=== PATIENT | male | born 1945 | race African-American/Black ===

== ENCOUNTER 2017-08-27 10:32 | Emergency (ER) | payer BC, MEDICARE | END 2017-08-27 13:11 | disposition home or self-care (01) | LOC: ERS 10:32 | DX: E11.649 Type 2 diabetes mellitus with hypoglycemia without coma (principal); M10.9 Gout, unspecified; I10 Essential (primary) hypertension; E78.5 Hyperlipidemia, unspecified; F17.210 Nicotine dependence, cigarettes, uncomplicated | CPT/HCPCS: 36416; 99284 ==

== ENCOUNTER 2018-04-11 09:07 | Emergency (ER) | payer BC, MEDICARE ==
--- NOTE | 2018-04-11 11:42 | RAD ---
ABDOMEN 1 VIEW: Date: 04/11/18 HISTORY: Abdominal pain. Constipation. FINDINGS: Large amount of stool throughout the colon and rectum. Small bowel gas pattern is nonspecific. Hemost asis clips over the right lower quadrant. Prominent calcification over the arterial structures. Dome of the liver and spleen are excluded from the image. IMPRESSION: 1. Constipation. 2. Atherosclerosis. POS: JANI
== END 2018-04-11 11:08 | disposition home or self-care (01) ==
LOC: ERS 09:07
DX: K59.00 Constipation, unspecified (principal); M10.9 Gout, unspecified; E11.9 Type 2 diabetes mellitus without complications; E78.5 Hyperlipidemia, unspecified; I10 Essential (primary) hypertension; Z87.891 Personal history of nicotine dependence; Z79.899 Other long term (current) drug therapy; Z79.82 Long term (current) use of aspirin
CPT/HCPCS: 74018

== ENCOUNTER 2019-04-09 07:57 | Emergency (ER) | payer MEDICARE, BC | END 2019-04-09 09:45 | disposition home or self-care (01) | LOC: ERS 07:57 | DX: I10 Essential (primary) hypertension (principal); M10.9 Gout, unspecified; E78.5 Hyperlipidemia, unspecified; F17.210 Nicotine dependence, cigarettes, uncomplicated; E11.9 Type 2 diabetes mellitus without complications; Z79.82 Long term (current) use of aspirin; Z79.899 Other long term (current) drug therapy; Z79.4 Long term (current) use of insulin; Z79.891 Long term (current) use of opiate analgesic | CPT/HCPCS: 99283 ==

== ENCOUNTER 2021-04-23 05:17 | Inpatient (IN) | payer MEDICARE, BC ==
[2021-04-23] MEDS ORDERED: Magnesium 2 GM/50 ML BAG (IN WATER) ONE (05:25)
[2021-04-23] MEDS ORDERED: Dexamethasone 10 MG/ML VIAL ONE (05:32)
[2021-04-23] MEDS ORDERED: Nitroglycerin 2% Ointment 1 INCH/1 GM Packet ONE (05:42)
[2021-04-23] MEDS ORDERED: hydrALAZINE 20 MG/ML VIAL ONE ×2 (05:42)
[2021-04-23 05:45] LABS: #Basophils 0.1 thou/uL (0.0-0.2); #Eosinphils 0.4 thou/uL (0.0-0.7); #Lymphocytes 1.9 thou/uL (1.20-3.40); #Monocytes 0.5 thou/uL (0.11-0.59); #Neutrophils 5.8 thou/uL (1.40-6.50); %Basophils 0.6 % (0.0-1.0); %Monocytes 5.7 % (0.0-10.0); %Neutrophils 66.7 % (42.0-75.0); Hemoglobin 7.9 g/dL (14.0-18.0); Mean Corpuscular HGB CONC 31.9 g/dL (32.0-36.0); Mean Corpuscular Hemoglobin 29.8 pg (27.0-31.0); Mean Corpuscular Volume 93.3 fL (78.0-98.0); Mean Platelet Volume 6.7 fL (7.4-10.4); Platelet Count 118 thou/uL (130-400); RBC Distribution Width 18.8 % (11.5-14.5); Red Blood Cell (RBC) Count 2.64 mill/uL (4.70-6.10); White Blood Cell (WBC) Count 8.7 thou/uL (4.8-10.8)
[2021-04-23] MEDS ORDERED: cloNIDine 0.1 MG TAB ONE (06:31)
[2021-04-23] MEDS ORDERED: Cefepime 2 GM VIAL ONE ×2 (06:31→06:32)
[2021-04-23] MEDS ORDERED: Vancomycin 1 GM/200 ML BAG ONE (06:31)
[2021-04-23 07:23] LABS: SARS-CoV-2 NAA Rapid Test Not Detected (NotDetected)
[2021-04-23 07:54] LABS: Albumin 3.4 g/dL (3.4-4.8)
[2021-04-23 07:55] LABS: Chloride 102 mmol/L (98-107); Potassium 4.5 mmol/L (3.5-5.1); Sodium 139 mmol/L (136-145)
[2021-04-23 07:56] LABS: Calcium 9.1 mg/dL (7.8-10.44)
[2021-04-23 07:57] LABS: Globulin 2.9 g/dL (2.4-3.5); Glucose 266 mg/dL (83-110); Protein, Total 6.3 g/dL (5.8-8.1)
[2021-04-23 07:58] LABS: Anion Gap 16 mmol/L (10-20); Bilirubin, Total 0.5 mg/dL (0.2-1.2); Carbon Dioxide 26 mmol/L (23-31)
[2021-04-23 08:00] LABS: Alkaline Phosphatase 101 U/L (40-110); Calc. Creatinine Clearance 0 mL/min (70-130)
[2021-04-23 08:01] LABS: BUN (Urea Nitrogen) 55 mg/dL (8.4-25.7)
[2021-04-23 08:02] LABS: AST (SGOT) 19 U/L (5-34)
[2021-04-23 08:03] LABS: ALT (SGPT) 16 U/L (8-55); CK (CPK) 94 U/L (30-200); Lipase 62 U/L (8-78)
[2021-04-23] MEDS ORDERED: Polyethylene Glycol 3350 17 GM Packet PO PRN (10:26)
[2021-04-23] MEDS ORDERED: Dextrose 5% in Water 1,000 ML IV PRN (10:45)
[2021-04-23] MEDS ORDERED: Dextrose 50% Abboject 50 ML SYRINGE SLOW IVP PRN (10:45)
[2021-04-23 11:07] LABS: Lactic Acid 0.9 mmol/L (0.5-2.2)
[2021-04-23] MEDS ORDERED: Iopamidol-370 76% 500 ML 1 ML ONE (11:34)
[2021-04-23 11:54] LABS: HBSAg Index 0.26 S/CO (0-0.99); Hep B Surf Ag Non-Reactive S/CO (NonReactive)
[2021-04-23] MEDS ORDERED: Azithromycin 500 MG VIAL ONE (14:51)
[2021-04-23] MEDS ORDERED: methylPREDNISolone Sod Succ 40 MG VIAL ONE (14:53)
[2021-04-23] MEDS ORDERED: cefTRIAXone\\ROCEPHIN 1 GM VIAL ONE (14:53)
[2021-04-23] MEDS ORDERED: Sodium Bicarbonate Tab 325 MG TAB PO SCH (15:00)
[2021-04-23] MEDS: cefTRIAXone\\ROCEPHIN 1 GM in Sodium Chloride 0.9% 100 ML IVPB SCH (19:13)
[2021-04-23] MEDS: Azithromycin 500 MG in Sodium Chloride 0.9% 250 ML 250 ML IVPB SCH (19:13)
[2021-04-23] MEDS: methylPREDNISolone Sod Succ 40 MG VIAL IVP SCH ×2 (19:13→22:25)
[2021-04-23] MEDS: Nicotine 21 MG PATCH TD SCH (19:13)
[2021-04-23] MEDS: Heparin 5,000 UNITS/ML VIAL SC SCH (19:14)
[2021-04-23] MEDS: cloNIDine 0.3 MG TAB PO SCH (19:16)
[2021-04-23] MEDS: Sevelamer Carbonate 800 MG TAB PO SCH ×2 (19:16)
[2021-04-23] MEDS: Carvedilol 25 MG TAB PO SCH (19:17)
[2021-04-23] MEDS ORDERED: Acetaminophen 325 MG TAB ONE (22:32)
[2021-04-23] MEDS ORDERED: hydrALAZINE 25 MG TAB ONE (22:32)
[2021-04-23] MEDS: NIFEdipine XL 60 MG TAB PO SCH (22:36)
[2021-04-23] MEDS: hydrALAZINE 25 MG TAB PO SCH (22:37)
[2021-04-23] MEDS: Acetaminophen 325 MG TAB PO PRN (22:39)
[2021-04-24] MEDS: Lantus 1000 UNITS/10 ML VIAL SC SCH ×3 (00:11→21:10)
[2021-04-24] MEDS: Atorvastatin Calcium 40 MG TAB PO SCH ×2 (00:11→21:09)
[2021-04-24] MEDS: Latanoprost 0.005% Ophth Soln 2.5 ml Bottle EA EYE SCH ×2 (00:12→21:47)
[2021-04-24] MEDS: Timolol 0.5% Ophth Soln 5 ml Bottle EA EYE SCH ×3 (00:13→21:11)
[2021-04-24] MEDS ORDERED: Heparin 10,000 UNITS/ 10 ML VIAL ONE (02:41)
[2021-04-24] MEDS ORDERED: methylPREDNISolone Sod Succ 40 MG VIAL ONE (02:41)
[2021-04-24] MEDS ORDERED: cloNIDine 0.1 MG TAB ONE (02:41)
[2021-04-24] MEDS: cloNIDine 0.3 MG TAB PO SCH ×4 (03:10→21:09)
[2021-04-24] MEDS: methylPREDNISolone Sod Succ 40 MG VIAL IVP SCH ×3 (03:11→14:26)
[2021-04-24] MEDS: Heparin 5,000 UNITS/ML VIAL SC SCH ×2 (03:11→16:34)
[2021-04-24] MEDS ORDERED: Aspirin 325 mg Enteric Coated Tablet PO SCH (09:00)
[2021-04-24 09:08] LABS: #Lymphocytes 0.5 thou/uL (1.20-3.40); #Monocytes 0.2 thou/uL (0.11-0.59); %Eosinophils 0.1 % (0.0-10.0); %Lymphocytes 7.1 % (21.0-51.0); %Monocytes 3.2 % (0.0-10.0); %Neutrophils 89.6 % (42.0-75.0); Hemoglobin 6.6 g/dL (14.0-18.0); Mean Corpuscular Hemoglobin 29.3 pg (27.0-31.0); Mean Corpuscular Volume 91.7 fL (78.0-98.0); Mean Platelet Volume 8.7 fL (7.4-10.4); Platelet Count 95 thou/uL (130-400); RBC Distribution Width 20.8 % (11.5-14.5); Red Blood Cell (RBC) Count 2.24 mill/uL (4.70-6.10); White Blood Cell (WBC) Count 6.7 thou/uL (4.8-10.8)
[2021-04-24 09:22] LABS: Anion Gap 15 mmol/L (10-20); BUN (Urea Nitrogen) 45 mg/dL (8.4-25.7); Calc. Creatinine Clearance 0 mL/min (70-130); Calcium 8.7 mg/dL (7.8-10.44); Carbon Dioxide 28 mmol/L (23-31); Chloride 100 mmol/L (98-107); Glucose 279 mg/dL (83-110); Potassium 4.4 mmol/L (3.5-5.1); Sodium 139 mmol/L (136-145)
[2021-04-24] MEDS ORDERED: Ondansetron PF 4 MG/2 ML Vial IVP PRN (10:22)
[2021-04-24] MEDS ORDERED: Ondansetron ODT 4 MG TAB PO PRN (10:22)
[2021-04-24] MEDS: Sevelamer Carbonate 800 MG TAB PO SCH ×3 (10:44→16:04)
[2021-04-24] MEDS: hydrALAZINE 25 MG TAB PO SCH ×2 (10:44→21:10)
[2021-04-24] MEDS: Carvedilol 25 MG TAB PO SCH ×2 (10:44→16:04)
[2021-04-24] MEDS: NIFEdipine XL 60 MG TAB PO SCH ×2 (10:45→21:09)
[2021-04-24] MEDS: HumaLOG 300 UNITS/3 ML VIAL SC PRN (11:17)
[2021-04-24 12:12] VITALS: BMI 20.5
[2021-04-24] MEDS: Acetaminophen 325 MG TAB PO PRN (13:05)
[2021-04-24] MEDS: Fluticasone Propionate Nasal Spray 16 gm Bottle NASAL SCH (14:57)
[2021-04-24 15:31] LABS: Hemoglobin 8.5 g/dL (14.0-18.0); Mean Corpuscular HGB CONC 32.4 g/dL (32.0-36.0); Mean Corpuscular Hemoglobin 29.9 pg (27.0-31.0); Mean Corpuscular Volume 92.2 fL (78.0-98.0); Mean Platelet Volume 7.5 fL (7.4-10.4); Platelet Count 97 thou/uL (130-400); Red Blood Cell (RBC) Count 2.83 mill/uL (4.70-6.10); White Blood Cell (WBC) Count 9.3 thou/uL (4.8-10.8)
[2021-04-24] MEDS: Allopurinol 100 MG TAB PO SCH (16:02)
[2021-04-24] MEDS: Furosemide 20 MG TAB PO SCH (16:03)
[2021-04-24] MEDS: Amlodipine 10 MG TAB PO SCH (16:04)
[2021-04-24] MEDS: cefTRIAXone\\ROCEPHIN 1 GM in Sodium Chloride 0.9% 100 ML IVPB SCH (16:05)
[2021-04-24] MEDS: Nicotine 21 MG PATCH TD SCH (16:05)
[2021-04-24 16:06] LABS: CKMB 0.9 ng/mL (0-6.6)
[2021-04-24] MEDS: Azithromycin 500 MG in Sodium Chloride 0.9% 250 ML 250 ML IVPB SCH (17:05)
[2021-04-24 21:02] LABS: CKMB 0.7 ng/mL (0-6.6)
[2021-04-25 10:01] LABS: INR-International Normal Ratio 1.1; Prothrombin Time 14.3 sec (12.0-14.7)
[2021-04-25 10:02] LABS: PTT 27.3 sec (22.9-36.1)
[2021-04-25] MEDS: Allopurinol 100 MG TAB PO SCH (10:06)
[2021-04-25] MEDS: hydrALAZINE 25 MG TAB PO SCH ×2 (10:06→21:40)
[2021-04-25] MEDS: cloNIDine 0.3 MG TAB PO SCH ×3 (10:06→21:42)
[2021-04-25] MEDS: Lidocaine 5% Patch TD SCH (10:06)
[2021-04-25] MEDS: Carvedilol 25 MG TAB PO SCH ×2 (10:06→16:33)
[2021-04-25] MEDS: Furosemide 20 MG TAB PO SCH (10:06)
[2021-04-25] MEDS: NIFEdipine XL 60 MG TAB PO SCH ×2 (10:06→21:41)
[2021-04-25] MEDS: Sevelamer Carbonate 800 MG TAB PO SCH ×3 (10:07→16:33)
[2021-04-25] MEDS: Amlodipine 10 MG TAB PO SCH (10:07)
[2021-04-25] MEDS: Fluticasone Propionate Nasal Spray 16 gm Bottle NASAL SCH (10:08)
[2021-04-25] MEDS: Lantus 1000 UNITS/10 ML VIAL SC SCH ×2 (11:03→21:41)
[2021-04-25] MEDS: cefTRIAXone\\ROCEPHIN 1 GM in Sodium Chloride 0.9% 100 ML IVPB SCH (11:55)
[2021-04-25] MEDS: Nicotine 21 MG PATCH TD SCH (11:56)
[2021-04-25] MEDS: Timolol 0.5% Ophth Soln 5 ml Bottle EA EYE SCH ×2 (11:56→21:42)
[2021-04-25] MEDS ORDERED: Fentanyl 100 MCG/2 ML VIAL ONE (12:54)
[2021-04-25] MEDS ORDERED: Sodium Bicarbonate 2.5 MEQ/5 ML VIAL ONE (12:54)
[2021-04-25] MEDS ORDERED: Lidocaine 1% PF 5 ML VIAL ONE (12:54)
[2021-04-25] MEDS ORDERED: Midazolam HCl 2 mg/2 ml Vial ONE (12:54)
[2021-04-25] MEDS: Azithromycin 500 MG in Sodium Chloride 0.9% 250 ML 250 ML IVPB SCH (15:08)
[2021-04-25] MEDS: HumaLOG 300 UNITS/3 ML VIAL SC PRN (17:24)
[2021-04-25] MEDS: Atorvastatin Calcium 40 MG TAB PO SCH (21:40)
[2021-04-25] MEDS: Latanoprost 0.005% Ophth Soln 2.5 ml Bottle EA EYE SCH (21:41)
[2021-04-25] MEDS: Transdermal Patch Removal TOP SCH (22:24)
[2021-04-26 05:51] LABS: #Eosinphils 0.1 thou/uL (0.0-0.7); #Lymphocytes 1.1 thou/uL (1.20-3.40); #Monocytes 0.4 thou/uL (0.11-0.59); #Neutrophils 5.3 thou/uL (1.40-6.50); %Basophils 0.2 % (0.0-1.0); %Eosinophils 2.1 % (0.0-10.0); %Lymphocytes 15.4 % (21.0-51.0); %Monocytes 6.3 % (0.0-10.0); Anion Gap 16 mmol/L (10-20); BUN (Urea Nitrogen) 57 mg/dL (8.4-25.7); Calc. Creatinine Clearance 9 mL/min (70-130); Calcium 8.4 mg/dL (7.8-10.44); Carbon Dioxide 27 mmol/L (23-31); Chloride 98 mmol/L (98-107); Glucose 167 mg/dL (83-110); Hemoglobin 8.1 g/dL (14.0-18.0); Mean Corpuscular HGB CONC 32.2 g/dL (32.0-36.0); Mean Corpuscular Hemoglobin 30.1 pg (27.0-31.0); Mean Corpuscular Volume 93.7 fL (78.0-98.0); Mean Platelet Volume 6.3 fL (7.4-10.4); Platelet Count 105 thou/uL (130-400); Potassium 4.2 mmol/L (3.5-5.1); RBC Distribution Width 19.6 % (11.5-14.5); Sodium 137 mmol/L (136-145)
[2021-04-26] MEDS: HumaLOG 300 UNITS/3 ML VIAL SC PRN (05:51)
[2021-04-26] MEDS: Timolol 0.5% Ophth Soln 5 ml Bottle EA EYE SCH ×2 (08:55→21:01)
[2021-04-26] MEDS: Fluticasone Propionate Nasal Spray 16 gm Bottle NASAL SCH (08:57)
[2021-04-26] MEDS: Sevelamer Carbonate 800 MG TAB PO SCH ×3 (08:57→18:10)
[2021-04-26] MEDS: Allopurinol 100 MG TAB PO SCH (08:58)
[2021-04-26] MEDS: Amlodipine 10 MG TAB PO SCH (08:59)
[2021-04-26] MEDS: Carvedilol 25 MG TAB PO SCH ×2 (08:59→18:10)
[2021-04-26] MEDS: cloNIDine 0.3 MG TAB PO SCH ×3 (08:59→21:00)
[2021-04-26] MEDS: Furosemide 20 MG TAB PO SCH (09:00)
[2021-04-26] MEDS: hydrALAZINE 25 MG TAB PO SCH ×2 (09:00→21:01)
[2021-04-26] MEDS: NIFEdipine XL 60 MG TAB PO SCH ×2 (09:01→21:01)
[2021-04-26] MEDS: Lidocaine 5% Patch TD SCH (09:02)
[2021-04-26] MEDS: Lantus 1000 UNITS/10 ML VIAL SC SCH ×2 (09:03→21:08)
[2021-04-26 14:42] LABS: A/G Ratio 1.7 (0.7-1.7); Albumin 3.4 g/dL (2.9-4.4); Alpha 1 0.2 g/dL (0.0-0.4); Alpha 2 0.4 g/dL (0.4-1.0); Beta 0.7 g/dL (0.7-1.3); Gamma 0.8 g/dL (0.4-1.8); M-Spike Not Observed g/dL (Not Observed)
[2021-04-26] MEDS: cefTRIAXone\\ROCEPHIN 1 GM in Sodium Chloride 0.9% 100 ML IVPB SCH (15:20)
[2021-04-26] MEDS: Azithromycin 500 MG in Sodium Chloride 0.9% 250 ML 250 ML IVPB SCH (15:20)
[2021-04-26] MEDS: Nicotine 21 MG PATCH TD SCH (15:21)
[2021-04-26] MEDS: Atorvastatin Calcium 40 MG TAB PO SCH (21:01)
[2021-04-26] MEDS: Cefdinir 300 MG CAP PO SCH (21:01)
[2021-04-26] MEDS: Latanoprost 0.005% Ophth Soln 2.5 ml Bottle EA EYE SCH (21:04)
[2021-04-26] MEDS: Transdermal Patch Removal TOP SCH (21:04)
[2021-04-27] MEDS: Lidocaine 5% Patch TD SCH (09:48)
[2021-04-27] MEDS: Lantus 1000 UNITS/10 ML VIAL SC SCH ×2 (09:49→20:56)
[2021-04-27] MEDS: Sevelamer Carbonate 800 MG TAB PO SCH ×3 (09:49→15:45)
[2021-04-27] MEDS: NIFEdipine XL 60 MG TAB PO SCH ×2 (09:49→20:56)
[2021-04-27] MEDS: cloNIDine 0.3 MG TAB PO SCH ×3 (09:49→20:54)
[2021-04-27] MEDS: Allopurinol 100 MG TAB PO SCH (09:50)
[2021-04-27] MEDS: Carvedilol 25 MG TAB PO SCH ×2 (09:50→15:45)
[2021-04-27] MEDS: Azithromycin 250 MG TAB PO SCH (09:50)
[2021-04-27] MEDS: Fluticasone Propionate Nasal Spray 16 gm Bottle NASAL SCH (09:50)
[2021-04-27] MEDS: Furosemide 20 MG TAB PO SCH (09:50)
[2021-04-27] MEDS: Amlodipine 10 MG TAB PO SCH (09:50)
[2021-04-27] MEDS: hydrALAZINE 25 MG TAB PO SCH ×2 (09:50→20:55)
[2021-04-27] MEDS: Timolol 0.5% Ophth Soln 5 ml Bottle EA EYE SCH ×2 (09:50→20:53)
[2021-04-27] MEDS: Cefdinir 300 MG CAP PO SCH (10:16)
[2021-04-27] MEDS: Nicotine 21 MG PATCH TD SCH (11:30)
[2021-04-27 14:38] LABS: Albumin-Ur 66.1 % (.); Alpha 1 - Ur 4.9 % (.); Alpha 2 - Ur 9.2 % (.); Beta-Ur 12.4 % (.); Gamma-Ur 7.4 % (.); M-Spike,% Not Observed % (Not Observed); Protein, Urine 249.8 mg/dL (Not Estab.)
[2021-04-27] MEDS: Latanoprost 0.005% Ophth Soln 2.5 ml Bottle EA EYE SCH (20:54)
[2021-04-27] MEDS: Atorvastatin Calcium 40 MG TAB PO SCH (20:54)
[2021-04-27] MEDS: Transdermal Patch Removal TOP SCH (20:58)
[2021-04-28 08:05] LABS: #Eosinphils 0.2 thou/uL (0.0-0.7); #Lymphocytes 0.6 thou/uL (1.20-3.40); #Monocytes 0.4 thou/uL (0.11-0.59); #Neutrophils 5.2 thou/uL (1.40-6.50); %Basophils 0.2 % (0.0-1.0); %Eosinophils 3.4 % (0.0-10.0); %Lymphocytes 9.2 % (21.0-51.0); %Monocytes 6.4 % (0.0-10.0); %Neutrophils 80.9 % (42.0-75.0); Hemoglobin 8.5 g/dL (14.0-18.0); Mean Corpuscular HGB CONC 32.7 g/dL (32.0-36.0); Mean Corpuscular Hemoglobin 30.8 pg (27.0-31.0); Mean Corpuscular Volume 94.3 fL (78.0-98.0); Mean Platelet Volume 5.7 fL (7.4-10.4); Platelet Count 93 thou/uL (130-400); RBC Distribution Width 20.5 % (11.5-14.5); Red Blood Cell (RBC) Count 2.77 mill/uL (4.70-6.10); White Blood Cell (WBC) Count 6.4 thou/uL (4.8-10.8)
[2021-04-28 08:12] LABS: Anion Gap 17 mmol/L (10-20); BUN (Urea Nitrogen) 52 mg/dL (8.4-25.7); Calc. Creatinine Clearance 8 mL/min (70-130); Calcium 8.7 mg/dL (7.8-10.44); Carbon Dioxide 27 mmol/L (23-31); Chloride 98 mmol/L (98-107); Potassium 3.5 mmol/L (3.5-5.1); Sodium 138 mmol/L (136-145)
[2021-04-28 08:15] LABS: Glucose 48 mg/dL (83-110)
[2021-04-28] MEDS: Azithromycin 250 MG TAB PO SCH (08:28)
[2021-04-28] MEDS: Allopurinol 100 MG TAB PO SCH (08:28)
[2021-04-28] MEDS: Sevelamer Carbonate 800 MG TAB PO SCH ×3 (08:28→16:33)
[2021-04-28] MEDS: Furosemide 20 MG TAB PO SCH (08:28)
[2021-04-28] MEDS: Carvedilol 25 MG TAB PO SCH ×2 (08:28→16:33)
[2021-04-28] MEDS: NIFEdipine XL 60 MG TAB PO SCH ×2 (08:28→21:58)
[2021-04-28] MEDS: Amlodipine 10 MG TAB PO SCH (08:28)
[2021-04-28] MEDS: Lidocaine 5% Patch TD SCH (08:29)
[2021-04-28] MEDS: Timolol 0.5% Ophth Soln 5 ml Bottle EA EYE SCH ×2 (08:35→21:58)
[2021-04-28] MEDS: Lantus 1000 UNITS/10 ML VIAL SC SCH ×2 (08:36→21:56)
[2021-04-28] MEDS: Polyethylene Glycol 3350 17 GM Packet PO SCH (08:36)
[2021-04-28] MEDS: cloNIDine 0.3 MG TAB PO SCH ×3 (08:37→21:53)
[2021-04-28] MEDS: Fluticasone Propionate Nasal Spray 16 gm Bottle NASAL SCH (08:37)
[2021-04-28] MEDS: hydrALAZINE 25 MG TAB PO SCH (08:38)
[2021-04-28] MEDS: Nicotine 21 MG PATCH TD SCH (13:55)
[2021-04-28] MEDS: Acetaminophen 325 MG TAB PO PRN (16:33)
[2021-04-28] MEDS ORDERED: Cefdinir 300 MG CAP PO SCH (21:00)
[2021-04-28] MEDS: Docusate 100 MG CAP PO SCH (21:53)
[2021-04-28] MEDS: Atorvastatin Calcium 40 MG TAB PO SCH (21:54)
[2021-04-28] MEDS: Enoxaparin Sodium 30 MG/0.3 ML SYRINGE SC SCH (21:55)
[2021-04-28] MEDS: Latanoprost 0.005% Ophth Soln 2.5 ml Bottle EA EYE SCH (21:57)
[2021-04-28] MEDS: Transdermal Patch Removal TOP SCH (21:59)
[2021-04-29 05:24] LABS: #Eosinphils 0.2 thou/uL (0.0-0.7); #Lymphocytes 0.7 thou/uL (1.20-3.40); #Monocytes 0.4 thou/uL (0.11-0.59); #Neutrophils 4.4 thou/uL (1.40-6.50); %Basophils 0.2 % (0.0-1.0); %Eosinophils 4.2 % (0.0-10.0); %Lymphocytes 12.4 % (21.0-51.0); %Monocytes 7.1 % (0.0-10.0); %Neutrophils 76.1 % (42.0-75.0); Hemoglobin 8.2 g/dL (14.0-18.0); Mean Corpuscular HGB CONC 32.8 g/dL (32.0-36.0); Mean Corpuscular Hemoglobin 29.6 pg (27.0-31.0); Mean Corpuscular Hemoglobin 31.1 pg (27.0-31.0); Mean Corpuscular Volume 94.6 fL (78.0-98.0); Mean Corpuscular Volume 95.5 fL (78.0-98.0); Mean Platelet Volume 11.1 fL (7.4-10.4); Mean Platelet Volume 11.7 fL (7.4-10.4); Platelet Count 95 thou/uL (130-400); Platelet Count 99 thou/uL (130-400); RBC Distribution Width 19.8 % (11.5-14.5); RBC Distribution Width 19.9 % (11.5-14.5); Red Blood Cell (RBC) Count 2.65 mill/uL (4.70-6.10); Red Blood Cell (RBC) Count 2.71 mill/uL (4.70-6.10); White Blood Cell (WBC) Count 5.8 thou/uL (4.8-10.8)
[2021-04-29 05:42] LABS: Anion Gap 11 mmol/L (10-20); BUN (Urea Nitrogen) 34 mg/dL (8.4-25.7); Calc. Creatinine Clearance 12 mL/min (70-130); Calcium 8.4 mg/dL (7.8-10.44); Carbon Dioxide 30 mmol/L (23-31); Chloride 100 mmol/L (98-107); Potassium 3.4 mmol/L (3.5-5.1); Sodium 138 mmol/L (136-145)
[2021-04-29 05:44] LABS: Glucose 36 mg/dL (83-110)
[2021-04-29] MEDS ORDERED: Lantus 1000 UNITS/10 ML VIAL SC SCH ×2 (09:00→21:00)
[2021-04-29] MEDS: Docusate 100 MG CAP PO SCH (09:53)
[2021-04-29] MEDS: Enoxaparin Sodium 30 MG/0.3 ML SYRINGE SC SCH (09:53)
[2021-04-29] MEDS: NIFEdipine XL 60 MG TAB PO SCH (09:53)
[2021-04-29] MEDS: Lidocaine 5% Patch TD SCH (09:54)
[2021-04-29] MEDS: Allopurinol 100 MG TAB PO SCH (09:54)
[2021-04-29] MEDS: cloNIDine 0.3 MG TAB PO SCH (09:54)
[2021-04-29] MEDS: Azithromycin 250 MG TAB PO SCH (09:54)
[2021-04-29] MEDS: Sevelamer Carbonate 800 MG TAB PO SCH ×2 (09:54→12:04)
[2021-04-29] MEDS: Carvedilol 25 MG TAB PO SCH (09:54)
[2021-04-29] MEDS: Furosemide 20 MG TAB PO SCH (09:54)
[2021-04-29] MEDS: Polyethylene Glycol 3350 17 GM Packet PO SCH (09:55)
[2021-04-29] MEDS: Fluticasone Propionate Nasal Spray 16 gm Bottle NASAL SCH (09:57)
[2021-04-29] MEDS: Timolol 0.5% Ophth Soln 5 ml Bottle EA EYE SCH (09:57)
[2021-04-29] MEDS: Nicotine 21 MG PATCH TD SCH (12:04)
[2021-04-29] MEDS: HumaLOG 300 UNITS/3 ML VIAL SC PRN (12:07)
[2021-04-29 12:22] VITALS: BP 124/65; TEMP 98
== END 2021-04-29 13:10 | disposition home or self-care (01) | DRG 686 ==
LOC: ERS 05:17 → INTOOBSV 10:23 → ERHOLD 10:23 → 2NO 04-24 10:04 → OBSVTOIN 04-25 15:48
PROVIDERS: ADMIT Internal Medicine; ATTEND Internal Medicine
PROC: 30233N1 Transfusion of Nonautologous Red Blood Cells into Peripheral Vein, Percutaneous Approach (ICD-10-PCS; principal; 2021-04-24)
PROC: 5A1D70Z Performance of Urinary Filtration, Intermittent, Less than 6 Hours Per Day (ICD-10-PCS; 2021-04-26)
PROC: 0TB33ZX Excision of Right Kidney Pelvis, Percutaneous Approach, Diagnostic (ICD-10-PCS; 2021-04-27)
DX: C65.1 Malignant neoplasm of right renal pelvis (principal); N18.6 End stage renal disease; J96.01 Acute respiratory failure with hypoxia; J18.9 Pneumonia, unspecified organism; C78.02 Secondary malignant neoplasm of left lung; C79.51 Secondary malignant neoplasm of bone; I12.0 Hypertensive chronic kidney disease with stage 5 chronic kidney disease or end stage renal disease; J44.1 Chronic obstructive pulmonary disease with (acute) exacerbation; J44.0 Chronic obstructive pulmonary disease with (acute) lower respiratory infection; E44.0 Moderate protein-calorie malnutrition; Z20.822 Contact with and (suspected) exposure to COVID-19; M10.9 Gout, unspecified; F17.210 Nicotine dependence, cigarettes, uncomplicated; F12.10 Cannabis abuse, uncomplicated; E78.5 Hyperlipidemia, unspecified; D63.1 Anemia in chronic kidney disease; H40.9 Unspecified glaucoma; G25.2 Other specified forms of tremor; K59.00 Constipation, unspecified; Z88.8 Allergy status to other drugs, medicaments and biological substances; Z79.899 Other long term (current) drug therapy; Z99.2 Dependence on renal dialysis; Z79.4 Long term (current) use of insulin; Z79.82 Long term (current) use of aspirin; Z79.84 Long term (current) use of oral hypoglycemic drugs; Z68.21 Body mass index [BMI] 21.0-21.9, adult; E16.2 Hypoglycemia, unspecified
CPT/HCPCS: 36415; 36416; 36430; 50200; 71045; 71275; 74018; 77012; 80048; 80053; 82550; 82553; 83605; 83690; 83880; 84165; 84166; 84484; 85025; 85379; 85610; 85730; 86850; 86900; 86901; 87040; 87340; 88305; 88333; 88334; 88341; 88342; 90935; 93005; 93010; 93306; 94660; 96365; 96367; 96375; 96376; G0257; G0378; J0360; J0456; J0692; J0696; J1100; J1644; J1650; J1815; J1956; J2250; J2920; J3010; J3370; J3475; J3490; J7050; P9016; Q9967; U0002

== ENCOUNTER 2021-05-11 13:15 | Outpatient (CLI) | payer MEDICARE, BC ==
[2021-05-12 00:41] LABS: SARS-CoV-2 PCR by NAA Not Detected (NotDetected)
== END 2021-05-11 13:16 | disposition home or self-care (01) ==
LOC: LABBT 13:15
PROVIDERS: ATTEND Internal Medicine Hematology & Oncology
DX: Z01.812 Encounter for preprocedural laboratory examination (principal); C64.1 Malignant neoplasm of right kidney, except renal pelvis; Z20.822 Contact with and (suspected) exposure to COVID-19
CPT/HCPCS: U0003; U0005

== ENCOUNTER 2021-05-25 12:14 | Outpatient (CLI) | payer OTHER, BC | END 2021-05-25 12:15 | disposition home or self-care (01) | LOC: SCSMRI 12:14 | PROVIDERS: ATTEND Internal Medicine Hematology & Oncology | DX: C34.12 Malignant neoplasm of upper lobe, left bronchus or lung (principal); C64.1 Malignant neoplasm of right kidney, except renal pelvis | CPT/HCPCS: 70553; 80053; 82248; 83615; 84100; 84436; 84443; 84550 ==

== ENCOUNTER 2021-06-01 10:15 | Outpatient (CLI) | payer OTHER, BC | END 2021-06-01 10:16 | disposition home or self-care (01) | LOC: PET 10:15 | PROVIDERS: ATTEND Internal Medicine Hematology & Oncology | DX: C34.12 Malignant neoplasm of upper lobe, left bronchus or lung (principal); C64.1 Malignant neoplasm of right kidney, except renal pelvis | CPT/HCPCS: 78815; A9552 ==

== ENCOUNTER 2021-07-06 08:31 | Outpatient (CLI) | payer OTHER, BC ==
[2021-07-06] MEDS ORDERED: Iopamidol 370 76% 100 ML VIAL ONE (12:25)
== END 2021-07-06 08:32 | disposition home or self-care (01) ==
LOC: CT 08:31
PROVIDERS: ATTEND Internal Medicine Hematology & Oncology
DX: C34.12 Malignant neoplasm of upper lobe, left bronchus or lung (principal); C64.1 Malignant neoplasm of right kidney, except renal pelvis; C78.00 Secondary malignant neoplasm of unspecified lung; R91.8 Other nonspecific abnormal finding of lung field; D49.0 Neoplasm of unspecified behavior of digestive system; M89.9 Disorder of bone, unspecified; K76.9 Liver disease, unspecified
CPT/HCPCS: 71260; 74177; Q9967

== ENCOUNTER 2021-07-20 12:23 | Emergency (ER) | payer OTHER, BC ==
[2021-07-20 13:03] LABS: Hemoglobin 6.7 g/dL (14.0-18.0); Mean Corpuscular Hemoglobin 29.4 pg (27.0-31.0); Mean Corpuscular Volume 92.1 fL (78.0-98.0); Mean Platelet Volume 5.6 fL (7.4-10.4); Platelet Count 116 thou/uL (130-400); RBC Distribution Width 25.4 % (11.5-14.5); Red Blood Cell (RBC) Count 2.29 mill/uL (4.70-6.10); White Blood Cell (WBC) Count 23.3 thou/uL (4.8-10.8)
[2021-07-20 13:18] LABS: Anisocytosis MODERATE=16-30 cells (100X) (0-5/hpf); Band 8 % (5-11); Eosinophils 1 % (0-10); Lymphocytes 4 % (21-51); MDiff Complete? YES; Monocytes 2 % (0-10); Neutrophil 84 % (42-75); Ovalocytes SLIGHT = 2-5 cells (100X) (0-1/hpf); Platelet Morphology Comment Appears Decreased; Poikilocytosis SLIGHT = 6-15 cells (100X) (0-5/hpf); Polychromasia SLIGHT = 2-3 cells (100X) (0-2/hpf); Schistocytes SLIGHT = 2-5 cells (100X) (0-1/hpf)
== END 2021-07-20 18:14 | disposition home or self-care (01) ==
LOC: ERS 12:23
DX: D64.9 Anemia, unspecified (principal); E11.9 Type 2 diabetes mellitus without complications; E78.5 Hyperlipidemia, unspecified; I10 Essential (primary) hypertension; F17.210 Nicotine dependence, cigarettes, uncomplicated; Z79.82 Long term (current) use of aspirin; Z79.4 Long term (current) use of insulin; Z79.899 Other long term (current) drug therapy
CPT/HCPCS: 36415; 36430; 85025; 86850; 86880; 86900; 86901; 86922; P9016

== ENCOUNTER 2021-07-24 04:04 | Inpatient (IN) | payer BC, OTHER ==
[2021-07-24] MEDS ORDERED: Sodium Bicarb 50 MEQ/50 ML Abboject 8.4% SYRINGE ONE (04:17)
[2021-07-24] MEDS ORDERED: Calcium Chloride 1 GM/10 ML Abboject SYRINGE ONE (04:17)
[2021-07-24] MEDS ORDERED: EPINEPHrine 1 MG/10 ML Abboject SYRINGE ONE (04:17)
[2021-07-24] MEDS ORDERED: Norepinephrine 4 MG/4 ML VIAL ONE (04:26)
[2021-07-24 04:39] LABS: Actual Bicarbonate (HCO3a) 20.2 mEq/L (22-28); Analyzer IN Cardio ER; Base Excess (BEa) -10.2 mEq/L (-2.0 to +3.0); Carboxyhemoglobin (COHb) 3.8 gm% (0.0-3.0); Hemoglobin (Hb) 6.3 g/dL (14.0-18.0); O2 Tension (PaO2), arterial 282.1 mmHg (> 70.0); Potassium - ABG Lab 3.66 mmol/L (3.70-5.30)
[2021-07-24 04:49] LABS: Puncture Site RRA
[2021-07-24 04:53] LABS: INR-International Normal Ratio 1.5; Prothrombin Time 18.1 sec (12.0-14.7)
[2021-07-24 04:55] LABS: PTT 80.1 sec (22.9-36.1)
[2021-07-24 05:06] LABS: Hemoglobin 6.1 g/dL (14.0-18.0); Mean Corpuscular HGB CONC 32.2 g/dL (32.0-36.0); Mean Corpuscular Hemoglobin 31.6 pg (27.0-31.0); Red Blood Cell (RBC) Count 1.92 mill/uL (4.70-6.10); White Blood Cell (WBC) Count 8.4 thou/uL (4.8-10.8)
[2021-07-24 05:20] LABS: ALT (SGPT) 339 U/L (8-55); AST (SGOT) 259 U/L (5-34); Albumin 2.4 g/dL (3.4-4.8); Alkaline Phosphatase 164 U/L (40-110); Anion Gap 29 mmol/L (10-20); BUN (Urea Nitrogen) 42 mg/dL (8.4-25.7); Bilirubin, Total 0.4 mg/dL (0.2-1.2); Calc. Creatinine Clearance 0 mL/min (70-130); Carbon Dioxide 17 mmol/L (23-31); Chloride 105 mmol/L (98-107); Globulin 1.9 g/dL (2.4-3.5); Glucose 280 mg/dL (83-110); Potassium 5.3 mmol/L (3.5-5.1); Protein, Total 4.3 g/dL (5.8-8.1); Sodium 146 mmol/L (136-145)
[2021-07-24 05:24] LABS: CKMB 0.7 ng/mL (0-6.6)
[2021-07-24 05:31] LABS: Calcium 12.3 mg/dL (7.8-10.44)
[2021-07-24 05:34] LABS: Band 11 % (5-11); Eosinophils 1 % (0-10); Hypochromia SLIGHT = 6-15 cells (100X) (0-5/hpf); Lymphocytes 33 % (21-51); MDiff Complete? YES; Mean Platelet Volume 7.9 fL (7.4-10.4); Metamyelocyte 1 % (0-0); Neutrophil 54 % (42-75); Nucleated RBC 4 % (0); Platelet Count 54 thou/uL (130-400); Platelet Morphology Comment Appears Decreased
[2021-07-24 05:39] LABS: SARS-CoV-2 NAA Rapid Test Not Detected (NotDetected)
[2021-07-24] MEDS ORDERED: Ondansetron PF 4 MG/2 ML Vial IVP PRN (06:30)
[2021-07-24] MEDS ORDERED: Acetaminophen 500 MG TAB PO PRN (06:30)
[2021-07-24] MEDS ORDERED: Fentanyl 100 MCG/2 ML VIAL ONE (06:32)
[2021-07-24 06:37] LABS: Magnesium 2.4 mg/dL (1.6-2.6)
[2021-07-24] MEDS ORDERED: Norepinephrine 8 MG/0.9% NS 250 ML IVPB PRN (06:41)
[2021-07-24] MEDS ORDERED: Lorazepam 2 MG/ML VIAL SLOW IVP PRN (06:45)
[2021-07-24] MEDS ORDERED: Propofol 1,000 MG/100 ML VIAL IV PRN (06:45)
[2021-07-24] MEDS ORDERED: Morphine 4 MG/ML VIAL SLOW IVP PRN (06:45)
[2021-07-24] MEDS ORDERED: Fentanyl CADD 100 ML IV SCH (06:45)
[2021-07-24] MEDS ORDERED: Ventilator Sedation Protocol 1 EACH FS SCH (06:45)
[2021-07-24] MEDS ORDERED: Propofol BOLUS 1,000 MG/100 ML VIAL IV PRN (06:45)
[2021-07-24] MEDS ORDERED: DISCONTINUE PREVIOUS NARCOTIC PAIN MEDICATIONS AND BENZODIAZEPINES FS SCH (06:45)
[2021-07-24] MEDS ORDERED: Fentanyl BOLUS 250 ML IVPB PRN (06:45)
[2021-07-24] MEDS ORDERED: Dextrose 50% Abboject 50 ML SYRINGE SLOW IVP PRN (06:57)
[2021-07-24] MEDS ORDERED: Dextrose 5% in Water 1,000 ML IV PRN (06:57)
[2021-07-24] MEDS ORDERED: HumaLOG 300 UNITS/3 ML VIAL SC PRN (06:57)
[2021-07-24] MEDS ORDERED: fentaNYL Citrate-0.9 % NaCl/PF 100 ML IV SCH (07:00)
[2021-07-24] MEDS ORDERED: Sodium Chloride 0.9% 1,000 ML IV SCH ×2 (07:30→16:00)
[2021-07-24 07:47] LABS: Actual Bicarbonate (HCO3a) 21.3 mEq/L (22-28); Base Excess (BEa) -1.8 mEq/L (-2.0 to +3.0); CO2 Tension 29.2 mmHg (35.0-45.0); Calcium, Ionized (arterial) 1.14 mmol/L (1.12-1.30); Hemoglobin (Hb) 8.1 g/dL (14.0-18.0); O2 Tension (PaO2), arterial 104.1 mmHg (> 70.0); Potassium - ABG Lab 4.98 mmol/L (3.70-5.30); pH, Arterial 7.48 (7.35-7.45)
[2021-07-24 07:55] LABS: Puncture Site RBA
[2021-07-24 07:56] LABS: Hemoglobin 7.9 g/dL (14.0-18.0); Mean Corpuscular HGB CONC 32.5 g/dL (32.0-36.0); Mean Corpuscular Hemoglobin 30.8 pg (27.0-31.0); Mean Corpuscular Volume 94.9 fL (78.0-98.0); Mean Platelet Volume 8.7 fL (7.4-10.4); Platelet Count 61 thou/uL (130-400); RBC Distribution Width 25.2 % (11.5-14.5); Red Blood Cell (RBC) Count 2.56 mill/uL (4.70-6.10); White Blood Cell (WBC) Count 11.5 thou/uL (4.8-10.8)
[2021-07-24 08:00] LABS: Lactic Acid 8.6 mmol/L (0.5-2.2)
[2021-07-24 08:15] LABS: Troponin I 0.182 ng/mL (< 0.028)
[2021-07-24 08:19] LABS: ALT (SGPT) 572 U/L (8-55); AST (SGOT) 460 U/L (5-34); Albumin 2.8 g/dL (3.4-4.8); Alkaline Phosphatase 233 U/L (40-110); Anion Gap 22 mmol/L (10-20); Anisocytosis MARKED = >30 cells (100X) (0-5/hpf); BUN (Urea Nitrogen) 48 mg/dL (8.4-25.7); Band 35 % (5-11); Bilirubin, Total 0.7 mg/dL (0.2-1.2); Calc. Creatinine Clearance 0 mL/min (70-130); Calcium 9.1 mg/dL (7.8-10.44); Carbon Dioxide 19 mmol/L (23-31); Chloride 104 mmol/L (98-107); Globulin 2.4 g/dL (2.4-3.5); Glucose 228 mg/dL (83-110); Lymphocytes 4 % (21-51); MDiff Complete? YES; Metamyelocyte 2 % (0-0); Monocytes 7 % (0-10); Myelocyte 4 % (0-0); Neutrophil 47 % (42-75); Nucleated RBC 2 % (0); Platelet Morphology Comment Appears Decreased; Polychromasia MODERATE = 3-4 cells (100X) (0-2/hpf); Potassium 5.2 mmol/L (3.5-5.1); Protein, Total 5.2 g/dL (5.8-8.1); Reactive Lymphocytes 1 % (0-10); Schistocytes MODERATE= 6-15 cells (100X) (0-1/hpf); Sodium 140 mmol/L (136-145); Toxic Granulation SLIGHT; Vacuoles SLIGHT
[2021-07-24] MEDS ORDERED: Heparin 5,000 UNITS/ML VIAL SC SCH (09:00)
[2021-07-24] MEDS: Norepinephrine 8 MG in Dextrose 5% in Water 242 ML IVPB PRN ×3 (10:32→20:06)
[2021-07-24] MEDS: Vasopressin 20 UNIT, Admixture Fee 1 EACH in Sodium Chloride 0.9% 50 ML IV SCH ×2 (10:32→16:57)
[2021-07-24] MEDS: Famotidine 20 MG TAB PO SCH (10:46)
[2021-07-24] MEDS ORDERED: Lactated Ringer's 500 ML IV SCH ×2 (11:00→19:15)
[2021-07-25 05:24] LABS: ALT (SGPT) 454 U/L (8-55); AST (SGOT) 257 U/L (5-34); Alkaline Phosphatase 172 U/L (40-110); Anion Gap 17 mmol/L (10-20); BUN (Urea Nitrogen) 39 mg/dL (8.4-25.7); Bilirubin, Total 1.1 mg/dL (0.2-1.2); Calc. Creatinine Clearance 10 mL/min (70-130); Calcium 8.3 mg/dL (7.8-10.44); Carbon Dioxide 26 mmol/L (23-31); Chloride 101 mmol/L (98-107); Globulin 2.5 g/dL (2.4-3.5); Glucose 161 mg/dL (83-110); Potassium 3.7 mmol/L (3.5-5.1); Protein, Total 5.5 g/dL (5.8-8.1); Sodium 140 mmol/L (136-145)
[2021-07-25 05:44] LABS: Hemoglobin 8.4 g/dL (14.0-18.0); Mean Corpuscular HGB CONC 32.6 g/dL (32.0-36.0); Mean Corpuscular Hemoglobin 30.9 pg (27.0-31.0); Mean Corpuscular Volume 94.6 fL (78.0-98.0); Mean Platelet Volume 8.4 fL (7.4-10.4); Platelet Count 108 thou/uL (130-400); RBC Distribution Width 25.2 % (11.5-14.5); Red Blood Cell (RBC) Count 2.72 mill/uL (4.70-6.10); White Blood Cell (WBC) Count 20.4 thou/uL (4.8-10.8)
[2021-07-25 05:45] LABS: Band 9 % (5-11); Lymphocytes 8 % (21-51); MDiff Complete? YES; Monocytes 8 % (0-10); Neutrophil 75 % (42-75); Nucleated RBC 1 % (0); Platelet Morphology Comment Appears Decreased; RBC Morphology Normal
[2021-07-25] MEDS: Famotidine 20 MG TAB PO SCH (09:53)
[2021-07-25 10:26] LABS: Actual Bicarbonate (HCO3v) 28 mEq/L (22-28); Base Excess 4.3 mEq/L (-2.0 to +3.0); Chloride (VBG) 101 mmol/L (98-106); Hemoglobin (Hb) 8.9 g/dL (12.6-17.4); Sodium 140.4 mmol/L (133-146); pH (venous) 7.46 (7.32-7.43)
[2021-07-25] MEDS: cefTRIAXone\\ROCEPHIN 2 GM in Sodium Chloride 0.9% 100 ML IVPB SCH (11:48)
[2021-07-25] MEDS: Lactated Ringer's 1,000 ML IV SCH (11:50)
[2021-07-25] MEDS: Norepinephrine 8 MG in Dextrose 5% in Water 242 ML IVPB PRN (21:07)
[2021-07-25] MEDS: HumaLOG 300 UNITS/3 ML VIAL SC PRN (22:38)
[2021-07-26] MEDS: Lactated Ringer's 1,000 ML IV SCH ×2 (01:30→14:33)
[2021-07-26 04:17] LABS: Hemoglobin 7.7 g/dL (14.0-18.0); MDiff Complete? YES; Mean Corpuscular HGB CONC 33.1 g/dL (32.0-36.0); Mean Corpuscular Hemoglobin 31.6 pg (27.0-31.0); Mean Corpuscular Volume 95.7 fL (78.0-98.0); Mean Platelet Volume 11.3 fL (7.4-10.4); Platelet Count 104 thou/uL (130-400); RBC Distribution Width 25.6 % (11.5-14.5); Red Blood Cell (RBC) Count 2.42 mill/uL (4.70-6.10); White Blood Cell (WBC) Count 18.1 thou/uL (4.8-10.8)
[2021-07-26 04:18] LABS: Band 37 % (5-11); Hypochromia SLIGHT = 6-15 cells (100X) (0-5/hpf); Lymphocytes 3 % (21-51); Monocytes 7 % (0-10); Neutrophil 52 % (42-75); Platelet Morphology Comment Appears Adequate; Reactive Lymphocytes 1 % (0-10)
[2021-07-26 04:26] LABS: ALT (SGPT) 316 U/L (8-55); AST (SGOT) 197 U/L (5-34); Albumin 2.7 g/dL (3.4-4.8); Alkaline Phosphatase 153 U/L (40-110); Anion Gap 19 mmol/L (10-20); BUN (Urea Nitrogen) 62 mg/dL (8.4-25.7); Bilirubin, Total 0.4 mg/dL (0.2-1.2); Calc. Creatinine Clearance 7 mL/min (70-130); Calcium 7.8 mg/dL (7.8-10.44); Carbon Dioxide 24 mmol/L (23-31); Chloride 106 mmol/L (98-107); Globulin 2.5 g/dL (2.4-3.5); Glucose 153 mg/dL (83-110); Potassium 3.7 mmol/L (3.5-5.1); Protein, Total 5.2 g/dL (5.8-8.1); Sodium 145 mmol/L (136-145)
[2021-07-26] MEDS: HumaLOG 300 UNITS/3 ML VIAL SC PRN (04:45)
[2021-07-26] MEDS: Scopolamine 1.5 mg/72 hour Patch TD SCH (12:33)
[2021-07-26] MEDS: cefTRIAXone\\ROCEPHIN 2 GM in Sodium Chloride 0.9% 100 ML IVPB SCH (12:33)
[2021-07-26] MEDS: Famotidine 20 MG TAB PO SCH (12:33)
[2021-07-27] MEDS: Lactated Ringer's 1,000 ML IV SCH ×2 (02:42→16:09)
[2021-07-27 04:26] LABS: Hemoglobin 6.9 g/dL (14.0-18.0); Mean Corpuscular Hemoglobin 31.5 pg (27.0-31.0); Mean Corpuscular Volume 98.4 fL (78.0-98.0); Mean Platelet Volume 7.6 fL (7.4-10.4); Platelet Count 90 thou/uL (130-400)
[2021-07-27 04:42] LABS: ALT (SGPT) 241 U/L (8-55); AST (SGOT) 176 U/L (5-34); Albumin 2.5 g/dL (3.4-4.8); Alkaline Phosphatase 131 U/L (40-110); Anion Gap 12 mmol/L (10-20); BUN (Urea Nitrogen) 34 mg/dL (8.4-25.7); Bilirubin, Total 0.4 mg/dL (0.2-1.2); Calc. Creatinine Clearance 11 mL/min (70-130); Calcium 8.1 mg/dL (7.8-10.44); Carbon Dioxide 30 mmol/L (23-31); Chloride 104 mmol/L (98-107); Globulin 2.6 g/dL (2.4-3.5); Glucose 116 mg/dL (83-110); Potassium 3.6 mmol/L (3.5-5.1); Protein, Total 5.1 g/dL (5.8-8.1); Sodium 142 mmol/L (136-145)
[2021-07-27 05:38] LABS: Anisocytosis MODERATE=16-30 cells (100X) (0-5/hpf); Band 15 % (5-11); Lymphocytes 1 % (21-51); MDiff Complete? YES; Monocytes 1 % (0-10); Myelocyte 2 % (0-0); Neutrophil 81 % (42-75); Nucleated RBC 3 % (0); Platelet Morphology Comment Appears Decreased; Polychromasia SLIGHT = 2-3 cells (100X) (0-2/hpf); Schistocytes MODERATE= 6-15 cells (100X) (0-1/hpf); White Blood Cell (WBC) Count 17.1 thou/uL (4.8-10.8)
[2021-07-27 08:01] LABS: Actual Bicarbonate (HCO3a) 31.1 mEq/L (22-28); Base Excess (BEa) 6.8 mEq/L (-2.0 to +3.0); CO2 Tension 43.6 mmHg (35.0-45.0); Calcium, Ionized (arterial) 1.12 mmol/L (1.12-1.30); Carboxyhemoglobin (COHb) 1.5 gm% (0.0-3.0); Hemoglobin (Hb) 7.3 g/dL (14.0-18.0); pH, Arterial 7.47 (7.35-7.45)
[2021-07-27 08:12] LABS: O2 Tension (PaO2), arterial 53.2 mmHg (> 70.0); Puncture Site RRA
[2021-07-27 09:31] VITALS: BMI 21.7
[2021-07-27] MEDS: Famotidine 20 MG TAB PO SCH (09:39)
[2021-07-27] MEDS: cefTRIAXone\\ROCEPHIN 2 GM in Sodium Chloride 0.9% 100 ML IVPB SCH (09:39)
[2021-07-27] MEDS: HumaLOG 300 UNITS/3 ML VIAL SC PRN (16:24)
[2021-07-28] MEDS: Lactated Ringer's 1,000 ML IV SCH ×2 (04:40→16:32)
[2021-07-28 08:55] LABS: Hemoglobin 6.5 g/dL (14.0-18.0); Mean Corpuscular HGB CONC 31.7 g/dL (32.0-36.0); Mean Corpuscular Hemoglobin 31.5 pg (27.0-31.0); Mean Corpuscular Volume 99.4 fL (78.0-98.0); Mean Platelet Volume 9.2 fL (7.4-10.4); Platelet Count 88 thou/uL (130-400); Red Blood Cell (RBC) Count 2.07 mill/uL (4.70-6.10)
[2021-07-28 09:04] LABS: Anion Gap 12 mmol/L (10-20); BUN (Urea Nitrogen) 48 mg/dL (8.4-25.7); Calc. Creatinine Clearance 0 mL/min (70-130); Calcium 8.1 mg/dL (7.8-10.44); Carbon Dioxide 30 mmol/L (23-31); Chloride 103 mmol/L (98-107); Glucose 157 mg/dL (83-110); Potassium 3.6 mmol/L (3.5-5.1); Sodium 141 mmol/L (136-145)
[2021-07-28] MEDS: Famotidine 20 MG TAB PO SCH (09:15)
[2021-07-28] MEDS: cefTRIAXone\\ROCEPHIN 2 GM in Sodium Chloride 0.9% 100 ML IVPB SCH ×2 (09:15→12:53)
[2021-07-28 09:24] LABS: Anisocytosis MODERATE=16-30 cells (100X) (0-5/hpf); Band 34 % (5-11); Helmet Cells SLIGHT = 2-5 cells (100X) (0-1/hpf); Hypochromia SLIGHT = 6-15 cells (100X) (0-5/hpf); Lymphocytes 3 % (21-51); MDiff Complete? YES; Macrocytosis SLIGHT = 6-15 cells (100X) (0-5/hpf); Metamyelocyte 1 % (0-0); Monocytes 2 % (0-10); Myelocyte 1 % (0-0); Neutrophil 58 % (42-75); Nucleated RBC 2 % (0); Ovalocytes SLIGHT = 2-5 cells (100X) (0-1/hpf); Platelet Morphology Comment Appears Decreased; Polychromasia MODERATE = 3-4 cells (100X) (0-2/hpf); Reactive Lymphocytes 1 % (0-10); Schistocytes MODERATE= 6-15 cells (100X) (0-1/hpf); Target Cells SLIGHT = 2-5 cells (100X) (0-1/hpf); Tear Drops SLIGHT = 2-5 cells (100X) (0-1/hpf); White Blood Cell (WBC) Count 16.6 thou/uL (4.8-10.8)
[2021-07-28] MEDS: Norepinephrine 8 MG/0.9% NS 250 ML IVPB SCH (16:22)
[2021-07-28] MEDS: HumaLOG 300 UNITS/3 ML VIAL SC PRN (19:18)
[2021-07-29 05:06] LABS: ALT (SGPT) 131 U/L (8-55); AST (SGOT) 74 U/L (5-34); Albumin 2.2 g/dL (3.4-4.8); Alkaline Phosphatase 109 U/L (40-110); Anion Gap 12 mmol/L (10-20); BUN (Urea Nitrogen) 37 mg/dL (8.4-25.7); Bilirubin, Total 0.4 mg/dL (0.2-1.2); Calc. Creatinine Clearance 10 mL/min (70-130); Calcium 8.3 mg/dL (7.8-10.44); Carbon Dioxide 30 mmol/L (23-31); Chloride 101 mmol/L (98-107); Globulin 2.5 g/dL (2.4-3.5); Glucose 146 mg/dL (83-110); Potassium 3.5 mmol/L (3.5-5.1); Protein, Total 4.7 g/dL (5.8-8.1); Sodium 139 mmol/L (136-145)
[2021-07-29] MEDS: Lactated Ringer's 1,000 ML IV SCH ×2 (05:42→19:08)
[2021-07-29] MEDS: Scopolamine 1.5 mg/72 hour Patch TD SCH (09:27)
[2021-07-29] MEDS: cefTRIAXone\\ROCEPHIN 2 GM in Sodium Chloride 0.9% 100 ML IVPB SCH (09:38)
[2021-07-29] MEDS: Famotidine 20 MG TAB PO SCH (09:39)
[2021-07-29] MEDS: HumaLOG 300 UNITS/3 ML VIAL SC PRN (11:50)
[2021-07-30 04:38] LABS: ALT (SGPT) 90 U/L (8-55); AST (SGOT) 44 U/L (5-34); Alkaline Phosphatase 95 U/L (40-110); Anion Gap 12 mmol/L (10-20); BUN (Urea Nitrogen) 44 mg/dL (8.4-25.7); Bilirubin, Total 0.3 mg/dL (0.2-1.2); Calc. Creatinine Clearance 9 mL/min (70-130); Calcium 8.4 mg/dL (7.8-10.44); Carbon Dioxide 27 mmol/L (23-31); Chloride 103 mmol/L (98-107); Globulin 2.5 g/dL (2.4-3.5); Glucose 93 mg/dL (83-110); Protein, Total 4.5 g/dL (5.8-8.1); Sodium 139 mmol/L (136-145)
[2021-07-30 05:42] LABS: Anisocytosis MODERATE=16-30 cells (100X) (0-5/hpf); Band 25 % (5-11); Eosinophils 2 % (0-10); Hemoglobin 7.6 g/dL (14.0-18.0); Lymphocytes 4 % (21-51); MDiff Complete? YES; Mean Corpuscular HGB CONC 32.6 g/dL (32.0-36.0); Mean Corpuscular Hemoglobin 32.4 pg (27.0-31.0); Mean Corpuscular Volume 99.4 fL (78.0-98.0); Monocytes 2 % (0-10); Neutrophil 67 % (42-75); Nucleated RBC 2 % (0); Platelet Count 92 thou/uL (130-400); Platelet Morphology Comment Appears Decreased; RBC Distribution Width 21.4 % (11.5-14.5); Red Blood Cell (RBC) Count 2.35 mill/uL (4.70-6.10); White Blood Cell (WBC) Count 19.7 thou/uL (4.8-10.8)
[2021-07-30] MEDS ORDERED: Potassium Chloride 40 MEQ in Premix Bag 1 BAG IVPB SCH (08:15)
[2021-07-30] MEDS: cefTRIAXone\\ROCEPHIN 2 GM in Sodium Chloride 0.9% 100 ML IVPB SCH (09:19)
[2021-07-30] MEDS: Famotidine 20 MG TAB PO SCH (09:19)
[2021-07-30] MEDS: Lactated Ringer's 1,000 ML IV SCH (09:19)
[2021-07-30 13:10] LABS: Actual Bicarbonate (HCO3a) 27.3 mEq/L (22-28); CO2 Tension 53.3 mmHg (35.0-45.0); Carboxyhemoglobin (COHb) 1.3 gm% (0.0-3.0); Hemoglobin (Hb) 7.7 g/dL (14.0-18.0); Potassium - ABG Lab 3.27 mmol/L (3.70-5.30); pH, Arterial 7.33 (7.35-7.45)
[2021-07-30 13:10] LABS: Actual Bicarbonate (HCO3a) 26.5 mEq/L (22-28); Base Excess (BEa) 2.9 mEq/L (-2.0 to +3.0); CO2 Tension 36.6 mmHg (35.0-45.0); Calcium, Ionized (arterial) 1.18 mmol/L (1.12-1.30); Carboxyhemoglobin (COHb) 1.1 gm% (0.0-3.0); Hemoglobin (Hb) 7.9 g/dL (14.0-18.0); O2 Tension (PaO2), arterial 67.9 mmHg (> 70.0); Potassium - ABG Lab 3.36 mmol/L (3.70-5.30); Puncture Site RRA; pH, Arterial 7.48 (7.35-7.45)
[2021-07-30 13:11] LABS: ALV-art Gradient 489.375 mmHg (0-20); Puncture Site RBA
[2021-07-30] MEDS: Norepinephrine 8 MG/0.9% NS 250 ML IVPB SCH (14:40)
[2021-07-30] MEDS: Dextrose 5 %-0.45 % NaCl 1,000 ML IV SCH (15:00)
[2021-07-31] MEDS: Dextrose 5 %-0.45 % NaCl 1,000 ML IV SCH (04:04)
[2021-07-31 07:38] VITALS: BP 100/58
[2021-07-31] MEDS ORDERED: Albumin 25% 25 GM/100 ML BOT IVPB SCH (08:00)
[2021-07-31] MEDS: Famotidine 20 MG TAB PO SCH (08:34)
[2021-07-31] MEDS: cefTRIAXone\\ROCEPHIN 2 GM in Sodium Chloride 0.9% 100 ML IVPB SCH (08:52)
[2021-07-31 09:26] LABS: Band 22 % (5-11); Hypochromia SLIGHT = 6-15 cells (100X) (0-5/hpf); Lymphocytes 9 % (21-51); MDiff Complete? YES; Mean Corpuscular HGB CONC 31.1 g/dL (32.0-36.0); Mean Corpuscular Hemoglobin 30.7 pg (27.0-31.0); Mean Corpuscular Volume 98.6 fL (78.0-98.0); Mean Platelet Volume 11.3 fL (7.4-10.4); Monocytes 8 % (0-10); Neutrophil 61 % (42-75); Platelet Count 91 thou/uL (130-400); Platelet Morphology Comment Appears Decreased; RBC Distribution Width 21.3 % (11.5-14.5); Red Blood Cell (RBC) Count 2.62 mill/uL (4.70-6.10); White Blood Cell (WBC) Count 21.6 thou/uL (4.8-10.8)
[2021-07-31 09:30] LABS: Anion Gap 14 mmol/L (10-20); BUN (Urea Nitrogen) 50 mg/dL (8.4-25.7); Calc. Creatinine Clearance 8 mL/min (70-130); Calcium 8.4 mg/dL (7.8-10.44); Carbon Dioxide 24 mmol/L (23-31); Chloride 104 mmol/L (98-107); Glucose 70 mg/dL (83-110); Potassium 3.6 mmol/L (3.5-5.1); Sodium 138 mmol/L (136-145)
[2021-07-31] MEDS: Norepinephrine 8 MG/0.9% NS 250 ML IVPB SCH (11:26)
[2021-07-31 12:21] LABS: SARS-CoV-2 PCR by NAA Not Detected (NotDetected)
[2021-07-31 13:38] VITALS: TEMP 97.5
== END 2021-07-31 15:40 | disposition expired | DRG 870 ==
LOC: ERS 04:04 → CCU 04:47
PROVIDERS: ADMIT Hospitalist; ATTEND Hospitalist
PROC: 5A1955Z Respiratory Ventilation, Greater than 96 Consecutive Hours (ICD-10-PCS; principal; 2021-07-24)
PROC: 30233N1 Transfusion of Nonautologous Red Blood Cells into Peripheral Vein, Percutaneous Approach (ICD-10-PCS; 2021-07-24)
PROC: 3E033XZ Introduction of Vasopressor into Peripheral Vein, Percutaneous Approach (ICD-10-PCS; 2021-07-24)
PROC: 3E043XZ Introduction of Vasopressor into Central Vein, Percutaneous Approach (ICD-10-PCS; 2021-07-24)
PROC: 3E04329 Introduction of Other Anti-infective into Central Vein, Percutaneous Approach (ICD-10-PCS; 2021-07-24)
PROC: 5A12012 Performance of Cardiac Output, Single, Manual (ICD-10-PCS; 2021-07-24)
PROC: 5A1D70Z Performance of Urinary Filtration, Intermittent, Less than 6 Hours Per Day (ICD-10-PCS; 2021-07-24)
PROC: 0D9670Z Drainage of Stomach with Drainage Device, Via Natural or Artificial Opening (ICD-10-PCS; 2021-07-24)
PROC: 02HV33Z Insertion of Infusion Device into Superior Vena Cava, Percutaneous Approach (ICD-10-PCS; 2021-07-24)
PROC: 3E0G76Z Introduction of Nutritional Substance into Upper GI, Via Natural or Artificial Opening (ICD-10-PCS; 2021-07-24)
PROC: 0W9930Z Drainage of Right Pleural Cavity with Drainage Device, Percutaneous Approach (ICD-10-PCS; 2021-07-27)
DX: A41.9 Sepsis, unspecified organism (principal); N18.6 End stage renal disease; J96.01 Acute respiratory failure with hypoxia; J96.02 Acute respiratory failure with hypercapnia; J18.9 Pneumonia, unspecified organism; R65.21 Severe sepsis with septic shock; K72.01 Acute and subacute hepatic failure with coma; C78.00 Secondary malignant neoplasm of unspecified lung; C64.1 Malignant neoplasm of right kidney, except renal pelvis; G93.1 Anoxic brain damage, not elsewhere classified; E87.3 Alkalosis; J93.83 Other pneumothorax; Z66 Do not resuscitate; Z20.822 Contact with and (suspected) exposure to COVID-19; Z51.5 Encounter for palliative care; I46.9 Cardiac arrest, cause unspecified; E78.5 Hyperlipidemia, unspecified; E11.22 Type 2 diabetes mellitus with diabetic chronic kidney disease; D63.1 Anemia in chronic kidney disease; R74.8 Abnormal levels of other serum enzymes; R77.8 Other specified abnormalities of plasma proteins; E83.52 Hypercalcemia; E87.5 Hyperkalemia; I10 Essential (primary) hypertension; R94.31 Abnormal electrocardiogram [ECG] [EKG]; E78.00 Pure hypercholesterolemia, unspecified; D69.59 Other secondary thrombocytopenia; T45.1X5A Adverse effect of antineoplastic and immunosuppressive drugs, initial encounter; I08.3 Combined rheumatic disorders of mitral, aortic and tricuspid valves; R57.0 Cardiogenic shock; R57.1 Hypovolemic shock; I48.91 Unspecified atrial fibrillation; E87.6 Hypokalemia; R19.7 Diarrhea, unspecified; Z99.2 Dependence on renal dialysis; Z28.21 Immunization not carried out because of patient refusal; Z88.8 Allergy status to other drugs, medicaments and biological substances; Z79.899 Other long term (current) drug therapy; Z79.51 Long term (current) use of inhaled steroids; Z79.4 Long term (current) use of insulin; Z79.82 Long term (current) use of aspirin; Z90.5 Acquired absence of kidney; Z87.891 Personal history of nicotine dependence; Z98.49 Cataract extraction status, unspecified eye
CPT/HCPCS: 36415; 36416; 36430; 36556; 36591; 36600; 51702; 70450; 71045; 78610; 80048; 80053; 82553; 82805; 83605; 83735; 83880; 84145; 84484; 85025; 85610; 85730; 86850; 86900; 86901; 87040; 90935; 92950; 93005; 93306; 94002; 94003; 95816; 95819; 95957; 96365; 96366; 96375; A9521; G0257; J0171; J0696; J1815; J3010; J3480; J3490; J7042; J7070; J7120; P9016; P9047; U0003; U0005